=== PATIENT | male | born 1995 | race Caucasian/White ===

== ENCOUNTER 2016-06-18 11:58 | Emergency (ER) | payer OTHER ==
[~2016-06-18] VITALS: Ht 172.7 cm; Wt 86.2 kg
[~2016-06-18 11:58] MED LIST: CEPH500C PO
--- OUTSIDE RECORDS SUMMARY | 2016-06-18 12:05 | XMS REPORT | Continuity of Care Document ---
Author Author [facility] Organization [facility] Address Unknown Phone Unavailable Care Team Providers Care Reliability Manager Name Role Phone TIMUR SINGH MD PCP Insurance Providers Payer Name Policy Number Subscriber Name Relationship Unknown Advance Directives Directive Response Recorded Date/Time Advance Directives No 08/11/14 7:28pm Resuscitation Status Full Code 08/11/14 7:28pm Problems Medical Problems Problem Onset Date Status Foreign body in skin Unknown Active Medications Medication Dose Route Sig Days/Qty Instructions Order Date Discontinued Date Status Cephalexin Monohydrate (Keflex) 1 Each PO THREE TIMES A DAY 8 Qty 08/11 Active Social History Social History Problem Response Recorded Date/Time Alcohol Use Occasionally Uses 08/11/2014 7:28pm Recreational Drug Use No 08/11/2014 7:28pm Recent Foreign Travel No 08/11/2014 7:28pm Recent Infectious Disease Exposure No 08/11/2014 7:28pm Smoking Status Never a Smoker 08/11/2014 7:28pm Query Response Start Date Stop Date Smoking Status Never a Smoker Hospital Discharge Instructions No hospital discharge instructions. Plan of Care No plan of care. Functional Status No functional status results. Allergies, Adverse Reactions, Alerts Allergen Type Severity Reaction Status Last Updated No Known Drug Allergies Active 08/11/14 Immunizations Name Given Type Tdap 08/11/14 Administered Vital Signs Acute Vital Signs Vital Response Date/Time Temperature (Fahrenheit) 98.3 degrees F (97.6 - 99.5) Temperature (Calculated Celsius) 36.97068 degrees C (36.4 - 37.5) Temperature Source Temporal Pulse Rate (adult) 72 bpm (60 - 90) Respiratory Rate 18 bpm (12 - 24) O2 Sat by Pulse Oximetry 99 % (88 - 100) Blood Pressure 142/85 mm Hg Pain Pain Intensity 6 Height (Feet) 5 feet Height (Inches) 9 inches Height (Calculated Centimeters) 175.231105 cm Weight (Pounds) 150 pounds Weight (Calculated Kilograms) 68.857528 kilograms Calculated BMI 22.15 Results No known relevant diagnostic tests, laboratory data and/or discharge summary. Procedures No known history of procedures. Encounters Encounter Location Date/Time Departed Emergency Room [facility] 08/11/14 6:53pm Recent Diagnosis
[2016-06-18] MEDS ORDERED: TETRACAINE 0.5% OPHTH SOLN 5 ML BTL OU STA (12:09)
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
[2016-06-18] MEDS ORDERED: BSS 15 ML IR ONE (12:15)
[2016-06-18] MEDS ORDERED: FLUORESCEIN (FLUOR-I-STRIPS) 1 MG STRP OU ONE (12:15)
[2016-06-18] MEDS ORDERED: LIDOCAINE/EPI 1%-1:100,000 (XYLOCAINE) 20ML ONE (12:17)
[2016-06-18] MEDS ORDERED: CEPH-507 PO (13:02)
--- NOTE | 2016-06-18 13:21 | Diagnostic Imaging Report ---
PROCEDURE: CT orbit without. TECHNIQUE: Multiple contiguous axial images were obtained through the facial bones without the use of intravenous contrast. INDICATION: Fall. Right eye injury with laceration. COMPARISON: None FINDINGS: No acute fracture, malalignment or osseous destructive process is seen. Orbital floors appear intact. The paranasal sinuses appear clear with the exception of minimal mucosal thickening in the right frontoethmoidal recess. There is minimal tortuosity of the nasal septum to the left. There is some mild right periorbital soft tissue swelling. The globes appear intact. No retrobulbar abnormality is suspected. IMPRESSION: No evidence of acute fracture or acute globe abnormality. There is incidental right ethmoid sinus inflammatory change. Dictated by: Dictated on workstation # [id number]
[2016-06-18 13:32] VITALS: BP 142/92
== END 2016-06-18 13:30 | disposition home or self-care (01) ==
LOC: EDUNIT# 11:58 → ER 12:01
DX: S01.111A Laceration without foreign body of right eyelid and periocular area, initial encounter (principal); H11.31 Conjunctival hemorrhage, right eye; W22.09XA Striking against other stationary object, initial encounter; Y99.8 Other external cause status
CPT/HCPCS: 12011; 70480